=== PATIENT | male | born 1975 | race Asian ===

== ENCOUNTER 2024-10-11 00:54 | Emergency (ER) | payer MEDICAID ==
[~2024-10-11] VITALS: Ht 170.2 cm; Wt 110.3 kg
[2024-10-11] MEDS: HYDROcodone-ACET 10/325MG TAB PO ONE (02:15)
--- NOTE | 2024-10-11 02:17 | ED.PDOC ---
GI ASSESSMENT HPI Comments 49-year-old male came to ER for abdominal pain. Patient has been complaining of epigastric abdominal pain for the past week radiating towards her left upper back area. He denies any nausea, vomiting, changes in bowel habits Chief Complaint: Abdominal Pain Time Seen by MD: 02:16 Reviewed Notes: Nurses Notes Information Source: Patient Mode of Arrival: Ambulatory Timing: Days Duration: Intermittent Prehospital treatment: None Quality: Aching Vomitus: None Stool: Normal Severity: Moderate Recent: None Recent Hx of: None Pain Location: Epigastric Modifying Factors: Nothing Associated sign and symptoms: Abdominal Pain Past Medical History PAST MEDICAL HISTORY: Denies Surgical History: Denies all surgeries Family History Family History: Reviewed,noncontributory to illness Social History Smoker: Non-Smoker Alcohol: Denies ETOH Use Drugs: Denies Drug Use Lives In: Home Constitutional: denies: chills, diaphoresis, fatigue, fever, malaise, sweats, weakness, others EENTM: denies: blurred vision, double vision, ear bleeding, ear discharge, ear drainage, ear pain, ear ringing, eye pain, eye redness, hearing loss, mouth pain, mouth swelling, nasal discharge, nose bleeding, nose congestion, nose pain, photophobia, tearing, throat pain, throat swelling, voice changes, others Respiratory: denies: cough, hemoptysis, orthopnea, SOB at rest, shortness of breath, SOB with excertion, stridor, wheezing, others Cardiovascular: denies: chest pain, dizzy spells, diaphoresis, Dyspnea on exertion, edema, irregular heart beat, left arm pain, lightheadedness, palpitations, PND, syncope, others Gastrointestinal: reports: abdominal pain; denies: abdomen distended, blood streaked bowels, constipated, diarrhea, dysphagia, difficulty swallowing, hematemesis, melena, nausea, poor appetite, poor fluid intake, rectal bleeding, rectal pain, vomiting, others Genitourinary: denies: burning, dysuria, flank pain, frequency, hematuria, i ncontinence, penile discharge, penile sore, pain, testicle pain, testicle swelling, urgency, others Neurological: denies: dizziness, fainting, headache, left sided numbness, left sided weakness, numbness, paresthesia, pre-existing deficit, right sided numbness, right sided weakness, seizure, speech problems, tingling, tremors, weakness, others Musculoskeletal: reports: back pain; denies: gout, joint pain, joint swelling, muscle pain, muscle stiffness, neck pain, others Integumetry: denies: bruises, change in color, change in hair/nails, dryness, l aceration, lesions, lumps, rash, wounds, others Allergic/Immunocompromised: denies: Difficulty Healing, Frequent Infections, Hives, Itching, others Hematologic/Lymphatic: denies: anemia, blood clots, easy bleeding, easy bruising, swollen glands, others Endocrine: denies: excessive hunger, excessive sweating, excessive thirst, excessive urination, flushing, intolerance to cold, intolerance to heat, unexplained weight gain, unexplained weight loss, others Psychiatric: denies: anxiety, bipolar disorder, depression, hopeless, panic disorder, schizophrenia, sleepless, suicidal, others Physical Exam General Appearance: Mild Distress, No Apparent Distress, Normal HEENT: Normal ENT Inspection, Pharynx Normal, TMs Normal Neck: Full Range of Motion, Non-Tender, Normal, Normal Inspection Respiratory: Chest Non-Tender, Lungs Clear, No Accessory Muscle Use, No Respiratory Distress, Normal Breath Sounds Cardiovascular: No Edema, No JVD, No Murmur, No Gallop, Normal Peripheral Pulses, Regular Rate/Rhythm Breast Exam: Deferred Gastrointestinal: No Organomegaly, Non Tender, No Pulsatile Mass, Normal Bowel Sounds, Soft Genitalia: Deferred Pelvic: Deferred Rectal: Deferred Extremities: No calf tenderness, Normal capillary refill, Normal inspection, Normal range of motion, Non-tender, No pedal edema Musculoskeletal : Apperance: Normal Neurologic: Alert, business transformation manager II-XII nml as Tested, No Motor Deficits, Normal Affect, Normal Mood, No Sensory Deficits Cerebellar Function: Normal Reflexes: Normal Skin: Dry, Normal Color, Warm Lymphatic: No Adenopathy EKG EKG : Pulse Rate (adult): 73 Cardiac Rhythm: NSR Was a procedure done? Was a procedure done?: No GI differential Dx Differential Diagnosis: Cholecystitis, Diverticular disease, Gastritis/PUD, Gastroenteritis, Pancreatitis, UTI, Urolithiasis X-Ray, Labs, Meds, VS Vital Signs Date Time Temp Pulse Resp B/P (MAP) Pulse Ox O2 Delivery O2 Flow Rate FiO2 10/11/24 02:17 73 10/11/24 02:04 73 10/11/24 02:03 97.7 70 20 152/90 (110) 97 Lab Test 10/11/24 02:36 Range/Units Troponin I High Sensitivity Pending Lipase Pending [address] [address] Ph: [phone] DIAGNOSTIC IMAGING Diagnostic Imaging Report : [id number] Signed PATIENT: MONTSE DAVIDSON ACCT: [id number] UNIT: [id number] : 1975 LOC: ER ROOM / BED: / AGE / SEX: 49 / M ADM STATUS: REG ER SERVICE 9 ORDERING PHYSICIAN: LORAINE HAQUE MD PROCEDURE(s): CTCAP - CHST AB PEL WO CON-NO IV/ORAL REASON: upper back pain/ gerd ORDER NUMBER(s): [id number], ACCESSION NUMBER(s): [id number] Examination: CTCAP CLINICAL INDICATION: upper back pain/ gerd COMPARISON: None. CONTRAST USED: None. TECHNIQUE: A plain CT study of the chest, abdomen, and pelvis was performed using 5 mm thin slices. The technique for this CT scan was done using principles of ALARA (As Low As Reasonably Achievable). Multiplanar reconstructions were obtained. FINDINGS: Lungs and Pleura: No consolidation or ground-glass opacity is noted. Subpleural emphysematous changes are seen in the bilateral lung parenchyma. Mediastinum and Great Vessels: The trachea and mainstem bronchi appear normal. No significant mediastinal lymphadenopathy is detected. The mediastinal vasculature appears normal. The pleural spaces are clear. Osseous Structures: Mild degenerative changes are noted in the thoracolumbar spine. CT ABDOMEN Lung Bases: No focal infiltrates or pleural effusion at the lung bases. Liver: Mild hepatomegaly with fatty infiltration of the liver parenchyma. No intrahepatic biliary radical dilatation. Gallbladder and Biliary System: Multiple gallbladder calculi are noted. The gallbladder wall is not thickened. No common bile duct (CBD) dilatation or abnormality. Spleen: Borderline splenomegaly is noted. No focal splenic lesions. Pancreas and Adrenals: The pancreas appears normal in size and shape with no focal lesion. The adrenal glands are normal in size and morphology. Retroperitoneum and Kidneys: No significant retroperitoneal lymphadenopathy. Both kidneys are normal in size with no evidence of hydronephrosis or renal calculi. Aorta, IVC, and mesenteric vessels cannot be commented on in this unenhanced CT scan. Stomach and Bowel: Colonic diverticulosis is noted without diverticulitis. No ascites is seen. CT PELVIS Appendix: The appendix appears normal. Colon: No significant abnormalities in the ascending, transverse, descending, sigmoid colon, or rectum. Bladder: The urinary bladder appears normal. Prostate and Male Pelvis: The prostate appears normal. Hernia: Bilateral inguinal hernia is noted, with fat as its content. Lymph Nodes and Fluid Collection: No pelvic lymphadenopathy identified. No abnormal fluid collection is seen. IMPRESSION: 1. Mild hepatomegaly with fatty infiltration of the liver parenchyma. 2. Borderline splenomegaly. 3. Multiple gallbladder calculi without wall thickening or pericholecystic fluid. 4. No CBD or intrahepatic biliary radical dilatation. 5. Colonic diverticulosis without diverticulitis. 6. Bilateral inguinal hernia with fat as its content. 7. Subpleural emphysematous changes in the bilateral lung parenchyma. 8. Mild degenerative changes in the thoracolumbar spine. Electronically Signed 10/11/2024 03:13 Cory Donald ATED BY: NIA CHILDS MD DICTATED DATE/TIME: 10/11/24312 SIGNED BY: NIA CHILDS MD SIGNED DATE/TIME: 10/11/24312 CC: Time of 1ST Reevaluation: 02:13 Reevaluation 1ST: Unchanged Patient Education/Counseling: Diagnosis, Treatment Family Education/Counseling: No Family Present Departure 1 Departure Time of Disposition: 03:28 Impression: Primary Impression: Splenomegaly Additional Impressions: Hepatomegaly Cholelithiasis Qualified Codes: K80.50 - Calculus of bile duct without cholangitis or cholecystitis without obstruction Bilateral inguinal hernia Qualified Codes: K40.00 - Bilateral inguinal hernia, with obstruction, without gangrene, not specified as recurrent Emphysema lung Qualified Codes: J43.9 - Emphysema, unspecified Thoracolumbar back pain Disposition: 01 HOME / SELF CARE / HOMELESS Condition: Stable e-Prescriptions Hydrocodone-Acetaminophen (Hydrocodone Bitartrate/AC 10-325 mg) 1 Tab Tab 1 TAB PO QIDPRN, #20 TAB Prov: LORAINE HAQUE MD 10/11/24 Discharged With: Self Critical Care Note Critical Care Time?: Yes (35 min-critical care time only) Stability Stability form required: No Heart Score Heart Score: Heart Score Response (Comments) Value History N/A 0 EKG N/A 0 Age N/A 0 Risk Factors N/A 0 Troponin N/A 0 Total 0 I personally scribed for LORAINE HAQUE MD ([email or web address]) on 10/11/24 at 02:17. Electronically submitted by Young Domíngeuz ([email or web address]). LORAINE HAQUE MD Oct 11, 2024 02:17
--- NOTE | 2024-10-11 03:13 | DVH ---
Examination: CTCAP CLINICAL INDICATION: upper back pain/ gerd COMPARISON: None. CONTRAST USED: None. TECHNIQUE: A plain CT study of the chest, abdomen, and pelvis was performed using 5 mm thin slices. T he technique for this CT scan was done using principles of ALARA (As Low As Reasonably Achievable). M ultiplanar reconstructions were obtained. FINDINGS: Lungs and Pleura: No consolidation or ground-glass opacity is noted. Subpleural emphysematous changes are seen in the bilateral lung parenchyma. Mediastinum and Great Vessels: The trachea and mainstem bronchi appear normal. No significant mediast inal lymphadenopathy is detected. The mediastinal vasculature appears normal. The pleural spaces are clear. Osseous Structures: Mild degenerative changes are noted in the thoracolumbar spine. CT ABDOMEN Lung Bases: No focal infiltrates or pleural effusion at the lung bases. Liver: Mild hepatomegaly with fatty infiltration of the liver parenchyma. No intrahepatic biliary rad ical dilatation. Gallbladder and Biliary System: Multiple gallbladder calculi are noted. The gallbladder wall is not thickened. No common bile duct (CBD) dilatation or abnormality. Spleen: Borderline splenomegaly is noted. No focal splenic lesions. Pancreas and Adrenals: The pancreas appears normal in size and shape with no focal lesion. The adrena l glands are normal in size and morphology. Retroperitoneum and Kidneys: No significant retroperitoneal lymphadenopathy. Both kidneys are normal in size with no evidence of hydronephrosis or renal calculi. Aorta, IVC, and mesenteric vessels cannot be commented on in this unenhanced CT scan. Stomach and Bowel: Colonic diverticulosis is noted without diverticulitis. No ascites is seen. CT PELVIS Appendix: The appendix appears normal. Colon: No significant abnormalities in the ascending, transverse, descending, sigmoid colon, or rectu m. Bladder: The urinary bladder appears normal. Prostate and Male Pelvis: The prostate appears normal. Hernia: Bilateral inguinal hernia is noted, with fat as its content. Lymph Nodes and Fluid Collection: No pelvic lymphadenopathy identified. No abnormal fluid collection is seen. IMPRESSION: 1. Mild hepatomegaly with fatty infiltration of the liver parenchyma. 2. Borderline splenomegaly. 3. Multiple gallbladder calculi without wall thickening or pericholecystic fluid. 4. No CBD or intrahepatic biliary radical dilatation. 5. Colonic diverticulosis without diverticulitis. 6. Bilateral inguinal hernia with fat as its content. 7. Subpleural emphysematous changes in the bilateral lung parenchyma. 8. Mild degenerative changes in the thoracolumbar spine. Electronically Signed 10/11/2024 03:13 Cory Donald
[2024-10-11] MEDS ORDERED: HYDR-4798 PO (03:30)
[2024-10-11 05:47] VITALS: BP 140/91; PULSE 69; RESP 16; O2SAT 97
--- NOTE | 2024-10-12 11:27 | ECG ---
[facility] Test Date: 2024-10-11 Test Time: 01:58:10 Pat Name: MONTSE DAVIDSON Department: ER Room: Gender: M Executive Recruiter: : 1975 Requested By: LORAINE HAQUE Order Number: [id number] Reading MD: Vincenzo Rubio Measurements Intervals [place] Rate: 73 P: 19 [place]: 132 QRS: 52 QRSD: 92 T: 24 QT: 395 QTc: 436 Interpretive Statements Sinus rhythm Baseline wander in lead(s) V5,V6 Electronically Signed On 10-12-2024 21:12:18 PST by Vincenzo Rubio Please click the below link to view image of tracing.
== END 2024-10-11 05:48 | disposition home or self-care (01) ==
LOC: ER 00:54
DX: R16.2 Hepatomegaly with splenomegaly, not elsewhere classified (principal); K80.50 Calculus of bile duct without cholangitis or cholecystitis without obstruction; K40.20 Bilateral inguinal hernia, without obstruction or gangrene, not specified as recurrent; J43.9 Emphysema, unspecified; M54.6 Pain in thoracic spine
CPT/HCPCS: 36415; 71250; 74176; 83690; 84484; 93005; 99291